=== PATIENT | female | born 1990 | race Caucasian/White ===

== ENCOUNTER 2017-06-09 10:15 | Outpatient (CLI) | payer OTHER ==
--- NOTE | 2017-06-09 16:14 | Diagnostic Imaging Report ---
ROSE GUSMAN [facility] [address] [facility] [address] [address] Report Submission Date: Jun 09, 2017 10:48:29 AM OPINION POLLS SURVEY WORKER Patient Study Name: VINH PUGA Date: Jun 09, 2017 10:34:59 AM OPINION POLLS SURVEY WORKER Modality Type: CR Gender: F Description: CHEST : 86 Institution: [facility] Physician: ROSE GSUMAN Examination: PA and lateral chest. History: Evaluate lung sutton. Findings: PA lateral chest demonstrate a normal cardiac and mediastinal silhouette. No focal infiltrate. No blunting of the costophrenic margins. Osseous structures are appropriate for age. Impression: No acute pulmonary process. Electronically signed on Jun 09, 2017 10:48:29 AM OPINION POLLS SURVEY WORKER by: Al LINDSAY
== END 2017-06-09 10:16 ==
LOC: RAD 10:15
PROVIDERS: ATTEND Physician Assistant
DX: R05 Cough (principal)
CPT/HCPCS: 71020